=== PATIENT | female | born 2000 | race Two or more races ===

== ENCOUNTER 2023-12-19 17:15 | Inpatient (IN) | payer MEDICAID ==
[~2023-12-19] VITALS: Ht 154.9 cm; Wt 86.2 kg
[2023-12-19] MEDS ORDERED: LACTATED RINGER'S 1,000 ML IV SCH (17:30)
[2023-12-19] MEDS ORDERED: MAGNESIUM SULFATE 40MG/ML 1,000 ML IV SCH (17:45)
[2023-12-19] MEDS ORDERED: MAGNESIUM SULFATE 100 ML IV ONE (17:45)
[2023-12-19] MEDS ORDERED: LORazepam 2MG/ML-1ML VIAL IV ONE (17:50)
[2023-12-19] MEDS: TERBUTALINE SULFATE 1 MG/ML 1ML VIAL SC SCH (18:02)
[2023-12-19] MEDS: BETAMETHASONE ACET (30mg/5ml) 5ml Vial 6mg/ml IM ONE (18:03)
[2023-12-19 18:42] LABS: Urine Bacteria FEW /hpf (None Seen); Urine Blood 3+ /uL (Negative); Urine Clarity Clear (Clear); Urine Color Colorless (Yellow); Urine Protein, UAD Negative (Negative); Urine Specific Gravity 1.004 (1.001-1.035); Urine Urobilinogen Normal (Negative); Urine WBC 1 /hpf (0 - 5); Urine pH 7.5 (5.0-9.0)
[2023-12-19 18:58] LABS: Amphetamine Screen, Urine Neg (NEGATIVE); Benzodiazephine Screen, Urine Neg (NEGATIVE)
[2023-12-19 18:59] LABS: Barbiturate Scree,Urine Neg (NEGATIVE); Cannabinoid Screen, Urine Neg (NEGATIVE); Cocaine Screen, Urine Neg (NEGATIVE); Phencyclidine Screen, Urine Neg (NEGATIVE)
[2023-12-19 19:06] LABS: Opiate Scree,Urine Neg (NEGATIVE)
[2023-12-19 19:11] LABS: Basophils # (auto) 0 10 ^3/uL (0-0.2); Eosinophils # (auto) 0 10 ^3/uL (0-0.8); Neutrophils # (auto) 7.2 10 ^3/uL (1.6-8.6)
[2023-12-19 19:13] LABS: Basophils % (auto) 0.2 % (0.0-2.0); Eosinophils % (auto) 0.3 % (0.0-7.0); Hematocrit 33.4 % (36.0-46.0); Hemoglobin 11.1 g/dL (12.2-16.2); Lymphocytes # (auto) 1.3 10 ^3/uL (0.4-5.4); Mean Corpuscular Hemoglobin 25.5 pg (28.0-32.0); Mean Corpuscular Hgb Conc. 33.1 g/dL (32.0-36.0); Mean Corpuscular Volume 77.1 fL (80.0-100.0); Monocytes # (auto) 0.6 10 ^3/uL (0-1.3); Monocytes % (auto) 6.5 % (0.0-12.0); Nucleated Red Blood Cells % 0.1 %; Red Blood Cells 4.34 10^6/uL (4.0-5.20); Red Cell Distribution Width 15.9 % (11.8-14.3); White Blood Cell 9.1 10^3/uL (4.4-10.8)
[2023-12-19 19:39] LABS: INR 0.98 (0.9-1.15); Partial Thromboplastin Time 30.5 SEC (24.5-34.5); Prothrombin Time 10.4 sec (9.3-11.8)
[2023-12-19 20:00] LABS: Albumin 4.2 g/dL (3.2-4.8); Alkaline Phosphatase 207 U/L (46-116); Anion Gap 11 (5-15); Aspartate Aminotransferase 8 U/L (13-40); Calcium 9.1 mg/dL (8.7-10.4); Carbon Dioxide 22 mmol/L (20-30); Chloride 104 mmol/L (98-107); Glucose 95 mg/dL (74-106); Potassium 2.7 mmol/L (3.5-5.1); Sodium 137 mmol/L (136-145)
[2023-12-19 20:01] LABS: Bilirubin, Total 0.5 mg/dL (0.2-1.0); Total Protein 7.3 g/dL (5.7-8.2)
[2023-12-19 20:07] LABS: Alanine Aminotransferase < 9 U/L (7-40); BUN/Creatinine Ratio 9.8 (10.0-20.0); Blood Urea Nitrogen < 5 mg/dL (9-23)
[2023-12-19] MEDS ORDERED: PREN1TAB71 OR (20:14)
== END 2023-12-19 18:55 | disposition short-term general hospital (02) | DRG 561 ==
LOC: LDRP 17:15 → OBSVTOIN 17:33
PROVIDERS: ADMIT Obstetrics & Gynecology; ATTEND Obstetrics & Gynecology
DX: O43.213 Placenta accreta, third trimester (principal); O44.03 Complete placenta previa NOS or without hemorrhage, third trimester; Z3A.31 31 weeks gestation of pregnancy; O34.211 Maternal care for low transverse scar from previous cesarean delivery
CPT/HCPCS: 36415; 59025; 76805; 76818; 80053; 80307; 81001; 83735; 85025; 85610; 85730; 86850; 86900; 86901; 86920; 96360; 96361; 96372; G0378